=== PATIENT | female | born 1965 | race Caucasian/White ===

== ENCOUNTER 2017-05-01 16:54 | Emergency (ER) | payer MEDICAID, OTHER | END 2017-05-01 17:00 | disposition home or self-care (01) | LOC: E/R 17:00 | DX: J11.1 Influenza due to unidentified influenza virus with other respiratory manifestations (principal); I10 Essential (primary) hypertension | CPT/HCPCS: 99283; Z7502 ==

== ENCOUNTER 2017-05-07 21:48 | Emergency (ER) | payer MEDICAID ==
[2017-05-08] MEDS: predniSONE 20 MG TAB PO (01:21)
[2017-05-08] MEDS: ALBUTEROL 0.5% (NEB) 2.5 MG/0.5 ML AMP INH (01:25)
== END 2017-05-08 02:40 | disposition home or self-care (01) ==
LOC: FTE 05-08 02:40
DX: R05 Cough (principal)
CPT/HCPCS: 71045; 99284-25

== ENCOUNTER 2017-06-25 21:42 | Emergency (ER) | payer MEDICAID ==
[2017-06-25] MEDS: ALBUTEROL 0.083% (NEB) 2.5 MG/3 ML AMP NEB (22:31)
[2017-06-25] MEDS: IPRATROPIUM (NEB) 0.5 MG/2.5 ML AMP NEB (22:32)
[2017-06-25] MEDS: predniSONE 20 MG TAB PO (22:37)
== END 2017-06-26 00:54 | disposition home or self-care (01) ==
LOC: FTE 06-26 00:54
DX: R05 Cough (principal); I10 Essential (primary) hypertension
CPT/HCPCS: 71045; 94664; 99284-25

== ENCOUNTER 2018-02-01 09:05 | Emergency (ER) | payer MEDICAID | END 2018-02-01 10:16 | disposition home or self-care (01) | LOC: FTE 09:05 | DX: J02.9 Acute pharyngitis, unspecified (principal); I10 Essential (primary) hypertension | CPT/HCPCS: 99282; Z7502 ==

== ENCOUNTER 2018-03-17 01:03 | Emergency (ER) | payer MEDICAID ==
[2018-03-17] MEDS: KETOROLAC 30 MG INJ IM (04:13)
== END 2018-03-17 05:43 | disposition home or self-care (01) ==
LOC: FTE 01:03
DX: M25.562 Pain in left knee (principal)
CPT/HCPCS: 73562; 96372; 99284-25